=== PATIENT | female | born 1980 | race American Indian/Alaskan Native ===

== ENCOUNTER 2020-01-10 06:54 | Emergency (ER) | payer BC ==
[2020-01-10 07:05] VITALS: BP 136/87
[2020-01-10] MEDS ORDERED: IBUPROFEN 800 MG TAB PO ONE (07:31)
--- NOTE | 2020-01-10 08:32 | XRay Report ---
XR knee BILAT 3V INDICATION / CLINICAL INFORMATION: knee pain. COMPARISON: None available. FINDINGS: BONES/JOINT(S): No acute fracture or subluxation. Mild bilateral tricompartmental DJD. No significant joint effusion. SOFT TISSUES: No significant abnormality. ADDITIONAL FINDINGS: None. Signer Name: Torres Melendez MD Signed: 01/10/2020 8:28 AM Workstation Name: [id number]
--- NOTE | 2020-01-10 09:28 | Emergency Department Report ---
ED Lower Extremity HPI - General Chief Complaint: Extremity Injury, Lower Stated Complaint: RT AND LT KNEE PAIN Time Seen by Provider: 01/10/20 07:26 Source: patient Mode of arrival: Ambulatory Limitations: No Limitations - History of Present Illness Initial Comments: This is a 39-year-old female nontoxic, well nourished in appearance, no acute signs of distress presents to the ED with c/o of bilateral knee pain 1 week. Patient stated that she had a fall. Patient denies any other trauma. Patient denies any numbness, tingling, fever, chills, nausea, vomiting, chest pain, shortness of breath, headache, stiff neck. Patient denies any joint swelling or joint redness. Patient denies decreased range of motion. Patient stated has decreased gait due to pain. Patient denies any allergies or significant past medical history. -: week(s) (1) Injury: Knee: Right, Left Severity: mild Severity scale (0 -10): 8 Improves With: immobilization Worsens With: weight bearing, movement, palpation Associated Symptoms: ambulatory. denies: snap/pop sensation, swelling, numbness, tingling, unable to bear weight, able to partially bear weight - Related Data Previous Rx's Medication Instructions Recorded Last Taken Type Naproxen 500 mg PO Q12H PRN #20 tablet 01/10/20 Unknown Rx Allergies Allergy/AdvReac Type Severity Reaction Status Date / Time lactase [From Dairy Aid] Allergy Hives Verified 01/10/20 07:03 seafood Allergy Swelling Uncoded 01/10/20 07:03 ED Review of Systems ROS: Stated complaint: RT AND LT KNEE PAIN Other details as noted in HPI Constitutional: denies: chills, fever Eyes: denies: eye pain, eye discharge, vision change ENT: denies: ear pain, throat pain Respiratory: denies: cough, shortness of breath, wheezing Cardiovascular: denies: chest pain, palpitations Endocrine: no symptoms reported Gastrointestinal: denies: abdominal pain, nausea, diarrhea Genitourinary: denies: urgency, dysuria, discharge Musculoskeletal: denies: back pain, joint swelling, arthralgia Skin: denies: rash, lesions Neurological: denies: headache, weakness, paresthesias Psychiatric: denies: anxiety, depression Hematological/Lymphatic: denies: easy bleeding, easy bruising ED Past Medical Hx - Past Medical History Previous Medical History?: Yes Hx Arthritis: Yes (osteo) Additional medical history: PCOS - Surgical History Past Surgical History?: Yes Additional Surgical History: Right ovary - Social History Smoking Status: Never Smoker Substance Use Type: None - Medications Home Medications: Home Medications Medication Instructions Recorded Confirmed Last Taken Type Naproxen 500 mg PO Q12H PRN #20 tablet 01/10/20 Unknown Rx ED Physical Exam - General Limitations: No Limitations General appearance: alert, in no apparent distress - Head Head exam: Present: atraumatic, normocephalic - Neck Neck exam: Present: normal inspection, full ROM - Extremities Exam Extremities exam: Present: normal inspection, full ROM, tenderness, normal capillary refill. Absent: joint swelling, calf tenderness - Expanded Lower Extremity Exam Left Hip exam: Present: normal inspection (bilateral exam), full ROM (bilateral exam). Absent: tenderness, swelling Upper Leg exam: Present: normal inspection (bilateral exam), full ROM (bilateral exam). Absent: tenderness, swelling Knee exam: Present: normal inspection (bilateral exam), full ROM (bilateral exam), tenderness (bilateral exam), full knee extension (bilateral exam). Absent: swelling, abrasion, laceration, ecchymosis, deformity, crepidus, dislocation, erythema, effusion, pain w/ pronation/supination, posterior draw sign, pain/laxity with valgus, pain/laxity with varus Lower Leg exam: Present: normal inspection (bilateral exam), full ROM (bilateral exam). Absent: tenderness, swelling Ankle exam: Present: normal inspection (bilateral exam), full ROM (bilateral exam). Absent: tenderness, swelling Foot/Toe exam: Present: normal inspection (bilateral exam), full ROM (bilateral exam). Absent: tenderness, swelling Neuro vascular tendon exam: Present: no vascular compromise (bilateral exam) Gait: Positive: observed and normal (bilateral exam) - Back Exam Back exam: Present: normal inspection, full ROM. Absent: tenderness, CVA tenderness (R), CVA tenderness (L), muscle spasm, paraspinal tenderness, vertebral tenderness, rash noted - Neurological Exam Neurological exam: Present: alert, oriented X3, normal gait - Psychiatric Psychiatric exam: Present: normal affect, normal mood - Skin Skin exam: Present: warm, dry, intact, normal color. Absent: rash ED Course Vital Signs 01/10/20 06:59 Temperature 98.7 F Pulse Rate 90 Respiratory 18 Rate Blood Pressure 136/87 O2 Sat by Pulse 98 Oximetry - Reevaluation(s) Reevaluation #1: 01/10/20 09:27 Patient is speaking in full sentences with no signs of distress noted. ED Lower Extremity MDM - Medical Decision Making This is a 39-year-old female that presents with bilateral knee strain. Patient is stable and was examined by me. I referred patient to an orthopedic doctor for further evaluation for possible MRI. X-ray has been obtained and dictated by the radiologist. Patient is notified of the x-ray report with noted by the patient. Patient does have normal gait with no tenderness and no joint swelling. No ecchymosis. no joint redness or swelling. Not warm to touch. No signs of cellulites present. Patient was instructed to RICE therapy. Patient received Motrin for pain. Patient is discharged with Motrin. At time of discharge, the patient does not seem toxic or ill in appearance. No acute signs of distress noted. Patient agrees to discharge treatment plan of care. No further questions noted by the patient. Critical care attestation.: If time is entered above; I have spent that time in minutes in the direct care of this critically ill patient, excluding procedure time. ED Disposition Clinical Impression: Strain of knee, bilateral Qualifiers: Encounter type: initial encounter Qualified Code(s): S86.911A - Strain of unspecified muscle(s) and tendon(s) at lower leg level, right leg, initial encounter; S86.912A - Strain of unspecified muscle(s) and tendon(s) at lower leg level, left leg, initial encounter Disposition: - TO HOME OR SELFCARE Is pt being admited?: No Does the pt Need Aspirin: No Condition: Stable Instructions: Knee Pain (ED), RICE Therapy (ED) Additional Instructions: Follow-up with a orthopedic doctor in 3-5 days or if symptoms worsen and continue return to emergency room as soon as possible. Prescriptions: Naproxen 500 mg PO Q12H PRN #20 tablet PRN Reason: Pain, Moderate (4-6) Referrals: SALMA CHATMAN MD [Primary Care Provider] - 3-5 Days PRIMARY CARE, [Referring] - 3-5 Days LIBERTY AGUIRRE MD [Staff Physician] - 3-5 Days [facility] [Outside] - 3-5 Days Forms: Work/School Release Form(ED)
== END 2020-01-10 09:37 | disposition home or self-care (01) ==
LOC: ED 06:54
DX: S76.812A Strain of other specified muscles, fascia and tendons at thigh level, left thigh, initial encounter (principal); S76.811A Strain of other specified muscles, fascia and tendons at thigh level, right thigh, initial encounter; M19.90 Unspecified osteoarthritis, unspecified site; Z90.721 Acquired absence of ovaries, unilateral; Z88.8 Allergy status to other drugs, medicaments and biological substances; Z91.013 Allergy to seafood; Z79.899 Other long term (current) drug therapy; W18.39XA Other fall on same level, initial encounter; Y93.89 Activity, other specified; Y92.89 Other specified places as the place of occurrence of the external cause; Y99.8 Other external cause status

== ENCOUNTER 2021-01-18 07:00 | Emergency (ER) | payer BC ==
[2021-01-18 07:12] VITALS: BP 148/69
--- NOTE | 2021-01-18 07:48 | Emergency Department Report ---
ED ENT HPI - General Chief complaint: Nosebleed Stated complaint: NOSE BLEED X2HRS Time Seen by Provider: 01/18/21 07:13 Source: patient, family Mode of arrival: Ambulatory Limitations: No Limitations - History of Present Illness Initial comments: This is a 40-year-old female nontoxic, well nourished in appearance, no acute signs of distress presents to the ED with c/o of epistaxis that started this morning. Patient stated she has history since she was 4 years old to have intermittent nosebleeds. Patient stated significant decrease but has slight bleeding. Patient denies any trauma or injuries. Patient stated had dry nose this morning which then started to bleed. Patient otherwise denies any other complaints or symptoms. Denies any dizziness, chest pain, shortness of breath, fever, chills, nausea, vomiting, headache or stiff neck. Patient denies any drug allergies significant past medical history. MD complaint: epistaxis -: This morning Severity scale (0 -10): 0 Improves with: none Worsens with: none Associated Symptoms: denies: fever, cough, gum swelling, toothache, pain with swallowing, sore throat, tinnitus, hearing loss, discharge from ear, rhinorrhea - Related Data Previous Rx's Medication Instructions Recorded Last Taken Type Naproxen 500 mg PO Q12H PRN #20 tablet 01/10/20 Unknown Rx Allergies Allergy/AdvReac Type Severity Reaction Status Date / Time lactase [From Dairy Aid] Allergy Hives Verified 01/10/20 07:03 seafood Allergy Swelling Uncoded 01/10/20 07:03 ED Dental HPI - General Chief complaint: Nosebleed Stated complaint: NOSE BLEED X2HRS Time Seen by Provider: 01/18/21 07:13 Source: patient, family Mode of arrival: Ambulatory Limitations: No Limitations - Related Data Previous Rx's Medication Instructions Recorded Last Taken Type Naproxen 500 mg PO Q12H PRN #20 tablet 01/10/20 Unknown Rx Allergies Allergy/AdvReac Type Severity Reaction Status Date / Time lactase [From Dairy Aid] Allergy Hives Verified 01/10/20 07:03 seafood Allergy Swelling Uncoded 01/10/20 07:03 ED Review of Systems ROS: Stated complaint: NOSE BLEED X2HRS Other details as noted in HPI Constitutional: denies: chills, fever Eyes: denies: eye pain, eye discharge, vision change ENT: epistaxis. denies: ear pain, throat pain, dental pain, hearing loss, congestion Respiratory: denies: cough, shortness of breath, wheezing Cardiovascular: denies: chest pain, palpitations Endocrine: no symptoms reported Gastrointestinal: denies: abdominal pain, nausea, diarrhea Genitourinary: denies: urgency, dysuria, discharge Musculoskeletal: denies: back pain, joint swelling, arthralgia Skin: denies: rash, lesions Neurological: denies: headache, weakness, paresthesias Psychiatric: denies: anxiety, depression Hematological/Lymphatic: denies: easy bleeding, easy bruising ED Past Medical Hx - Past Medical History Previous Medical History?: Yes Hx Arthritis: Yes (osteo) Additional medical history: PCOS - Surgical History Past Surgical History?: Yes Additional Surgical History: Right ovary - Social History Smoking Status: Never Smoker Substance Use Type: None - Medications Home Medications: Home Medications Medication Instructions Recorded Confirmed Last Taken Type Naproxen 500 mg PO Q12H PRN #20 tablet 01/10/20 Unknown Rx ED Physical Exam - General Limitations: No Limitations General appearance: alert, in no apparent distress - Head Head exam: Present: atraumatic, normocephalic - Eye Eye exam: Present: normal appearance - ENT ENT exam: Present: other (No nasal hematoma. Slight epistaxis to anterior nostrils.) - Expanded ENT Exam Expanded Ear exam: Present: normal external inspection Mouth exam: Present: normal external inspection, tongue normal. Absent: drooling, trismus, muffled voice Teeth exam: Present: normal inspection Throat exam: Positive: normal inspection, other (Uvula midline). Negative: tonsillar erythema, tonsillomegaly, tonsillar exudate, R peritonsillar mass, L peritonsillar mass - Neck Neck exam: Present: normal inspection, full ROM. Absent: tenderness, meningismus, lymphadenopathy - Respiratory Respiratory exam: Absent: respiratory distress - Cardiovascular Cardiovascular Exam: Present: regular rate - Extremities Exam Extremities exam: Present: full ROM - Back Exam Back exam: Present: full ROM - Neurological Exam Neurological exam: Present: alert, oriented X3, normal gait - Psychiatric Psychiatric exam: Present: normal affect, normal mood - Skin Skin exam: Present: warm, dry, intact, normal color. Absent: rash ED Course Vital Signs 01/18/21 07:11 Temperature 98.4 F Pulse Rate 63 Respiratory 18 Rate Blood Pressure 148/69 O2 Sat by Pulse 100 Oximetry - Reevaluation(s) Reevaluation #1: 01/18/21 07:46 Patient is speaking in full sentences with no signs of distress noted. ED Medical Decision Making - Medical Decision Making Patient is stable and was examined by me. Vital signs are stable. Pressure with 2 tongue depressors applied to the nostril area for 45 minutes which bleeding has completely stopped. Otherwise physical exam is unremarkable. Patient was educated on methods to stop epistaxis during occurrence. Patient was instructed to follow-up with a primary care doctor in 3-5 days or if symptoms worsen and continue return to emergency room as soon as possible. At time of discharge, the patient does not seem toxic or ill in appearance. No acute signs of distress noted. Patient agrees to discharge treatment plan of care. No further questions noted by the patient. Critical care attestation.: If time is entered above; I have spent that time in minutes in the direct care of this critically ill patient, excluding procedure time. ED Disposition Clinical Impression: Epistaxis Disposition: DC-01 TO HOME OR SELFCARE Is pt being admited?: No Does the pt Need Aspirin: No Condition: Stable Instructions: Nosebleed, Adult Additional Instructions: Follow-up with a primary care doctor in 3-5 days or if symptoms worsen and continue return to emergency room as soon as possible. Referrals: SALMA CHATMAN MD [Primary Care Provider] - 3-5 Days PRIMARY CAREMD [Referring] - 3-5 Days Forms: Work/School Release Form(ED) Time of Disposition: 08:10
== END 2021-01-18 08:32 | disposition home or self-care (01) ==
LOC: ED 07:00
DX: R04.0 Epistaxis (principal); M19.91 Primary osteoarthritis, unspecified site; Z98.890 Other specified postprocedural states; Z79.899 Other long term (current) drug therapy; Z91.013 Allergy to seafood; Z88.8 Allergy status to other drugs, medicaments and biological substances
CPT/HCPCS: 99282

== ENCOUNTER 2021-01-25 16:13 | Emergency (ER) | payer BC ==
[2021-01-25 16:22] VITALS: BP 131/89
--- NOTE | 2021-01-25 16:23 | Emergency Department Report ---
Chief Complaint: Medical Clearance Stated Complaint: CHILLS/SIDE EFFECTS Time Seen by Provider: 01/25/21 16:21 - HPI History of Present Illness: GOT HER COVID 19 MEDURNA SHOT YESTERDAY TODAY HER ARM IS SORE AND SHE FEELS BAD AMBULATORY NON ILL NON TOXIC ON EXAM - ROS Review of Systems: SORE ARM FATIGUE NO CP NO SOB NO FEVER - Exam Vital Signs: Vital Signs 01/25/21 16:19 Temperature 98.5 F Pulse Rate 100 H Respiratory 18 Rate Blood Pressure 131/89 O2 Sat by Pulse 95 Oximetry Physical Exam: A/O LUNGS CTA ABD SNT MSE screening note: Focused history and physical exam performed. Due to findings the following was ordered: NO LIFE THREAT EXPECTED RESPONSE Patient discussed with doctor:: CHRIS ROSENTHAL ED Disposition for MSE Condition: Stable Prescriptions: Naproxen [Naprosyn] 500 mg PO BID PRN #20 tablet PRN Reason: Pain Naproxen 500 mg PO Q12H PRN #20 tablet PRN Reason: Pain, Moderate (4-6)
== END 2021-01-25 16:25 | disposition home or self-care (01) ==
LOC: ED 16:13
DX: R53.83 Other fatigue (principal); M79.603 Pain in arm, unspecified
CPT/HCPCS: 99281

== ENCOUNTER 2021-05-21 12:48 | Emergency (ER) | payer BC ==
[2021-05-21 13:01] VITALS: BP 125/58
== END 2021-05-21 13:00 | disposition left against medical advice (07) ==
LOC: ED 12:48
DX: R06.02 Shortness of breath (principal); Z53.21 Procedure and treatment not carried out due to patient leaving prior to being seen by health care provider